=== PATIENT | male | born 1960 | race African-American/Black ===

== ENCOUNTER 2024-09-08 08:27 | Inpatient (IN) | payer MEDICAID ==
[2024-09-08] VITALS (7 sets, daily range): BP systolic 139–170; BP diastolic 88–100; PULSE 80–97; RESP 16–18; TEMP 36.3–36.8; O2SAT 98–100
[~2024-09-08] VITALS: Ht 182.9 cm; Wt 75.9 kg
[2024-09-08 09:28] LABS: BASOPHILS % 1.1 % (0.0-2.0); EOSINOPHILS % 2.4 % (0.0-5.0); HEMATOCRIT. 33.4 % (42.0-52.0); HEMOGLOBIN. 10.5 g/dL (14.0-18.0); LYMPHOCYTES % 10.7 % (20.0-50.0); MEAN PLATELET VOLUME 8.4 fl (7.4-10.4); MONOCYTES % 6.2 % (2.0-8.0); NEUTROPHILS % 79.6 % (40.0-76.0); PLATELET 294 x1000/uL (130-400); RED BLOOD CELL COUNT 4.35 mill/uL (4.7-6.1); RED CELL DISTRIBUTION WIDTH 18.1 % (11.6-14.6)
[2024-09-08 09:50] LABS: CREATININE 1.7 mg/dL (0.6-1.3); UREA NITROGEN BLOOD 22 mg/dL (9-23)
[2024-09-08 09:52] LABS: TROPONIN I HIGH SENSITIVITY 53 ng/L (3.0-53)
[2024-09-08] MEDS: FUROSEMIDE 100MG/10ML VIAL IVP ONE (11:25)
[2024-09-08] MEDS: CEFTRIAXONE 1GM/50ML 50 ML IV ONE (11:25)
[2024-09-08] MEDS: AZITHROMYCIN 500MG/250ML 250 ML IV STA (11:26)
[2024-09-08 11:40] LABS: TROPONIN I HIGH SENSITIVITY 73 ng/L (3.0-53)
[2024-09-08] MEDS ORDERED: ACETAMINOPHEN 325MG TABLET PO PRN (13:15)
[2024-09-08] MEDS ORDERED: ONDANSETRON HCL 4MG/2ML INJ IV PRN (13:15)
[2024-09-08] MEDS: AMLODIPINE 10MG TABLET PO SCH (13:39)
[2024-09-08] MEDS: ISOSORBIDE MONONITRATE 30MG TABLET SR 24HR PO SCH (14:42)
[2024-09-08] MEDS: ASPIRIN 81MG TABLET PO SCH (15:18)
[2024-09-08] MEDS: FUROSEMIDE 40MG/4ML VIAL IV SCH (17:33)
[2024-09-08] MEDS ORDERED: NALOXONE HCL 0.4MG/ML VIAL IV PRN (23:45)
[2024-09-09] VITALS (16 sets, daily range): BP systolic 138–164; BP diastolic 90–108; PULSE 73–93; RESP 10–19; TEMP 36.6–37; O2SAT 95–100
[2024-09-09] MEDS: HYDROCODONE/ACETAMINOPHEN 10/325MG TABLET PO PRN (00:15)
[2024-09-09] MEDS: ENOXAPARIN 40MG/0.4ML SYR SUBCUT SCH (08:46)
[2024-09-09] MEDS: IPRATROPIUM/ALBUTEROL 0.5-3(2.5)MG/3ML NEB HHN SCH (08:56)
[2024-09-09 09:02] LABS: BG BASE EXCESS 4.5 mmol/L (-2.0-3.0); BG CARBOXYHEMOGLOBIN 0.6 % (0.5-1.5); BG DEOXYHEMOGLOBIN 0.7 % (0.0-5.0); BG FLOW(L/min) 40.00 L/min; BG FRACTION INSPIRED OXYGEN 100; BG HCO3 ACT 29.1 mmol/L (21.0-28.0); BG METHEMOGLOBIN 0.0 % (0.5-1.5); BG OXYGEN SATURATION 99.3 % (94.0-98.0); BG OXYHEMOGLOBIN 98.7 % (94.0-98.0); BG PCO2 43.2 mmHg (35.0-48.0); BG PH 7.446 (7.350-7.450); BG PO2 188.2 mmHg (83.0-108.0); BG SAMPLE SITE RIGHT RADIAL; BG TOTAL HEMOGLOBIN 13.1 g/dL (13.5-17.5); BG VENT MODE HIGH FLOW
[2024-09-09 12:20] LABS: CREATININE 1.7 mg/dL (0.6-1.3); UREA NITROGEN BLOOD 24.0 mg/dL (9-23)
[2024-09-09] MEDS: POTASSIUM CHLORIDE 20MEQ TABLET SR PO SCH (12:53)
[2024-09-09] MEDS: HYDRALAZINE HCL 25MG TABLET PO SCH (21:47)
[2024-09-10] VITALS (12 sets, daily range): BP systolic 119–167; BP diastolic 76–102; PULSE 73–97; RESP 11–24; TEMP 36.6–36.8; O2SAT 93–97
[2024-09-10] MEDS: SPIRONOLACTONE 25MG TABLET PO SCH (14:32)
[2024-09-10] MEDS ORDERED: HYDR25TA78 MT ×2 (14:51→15:33)
[2024-09-10] MEDS ORDERED: ASPI-1497 MT ×2 (14:51→15:33)
[2024-09-10] MEDS ORDERED: AMLO10TA80 MT ×2 (14:51→15:33)
[2024-09-10] MEDS ORDERED: SPIR25TA6 MT ×2 (14:51→15:33)
[2024-09-10] MEDS ORDERED: ISOS10TA95 PO ×2 (14:51→15:33)
[2024-09-10] MEDS ORDERED: FURO-151 MT ×2 (14:51→15:33)
== END 2024-09-10 16:00 | disposition home or self-care (01) | DRG 280 ==
LOC: ER 08:27 → 5EST 10:44 → EDBEDREQTM 10:50 → EDBEDREQ 10:50 → EDBEDREQSVC 10:50 → ENRESERV 11:04
PROVIDERS: ADMIT Internal Medicine; ATTEND Internal Medicine
PROC: 5A0945A Assistance with Respiratory Ventilation, 24-96 Consecutive Hours, High Flow/Velocity Cannula (ICD-10-PCS; principal; 2024-09-08)
PROC: 5A0935A Assistance with Respiratory Ventilation, Less than 24 Consecutive Hours, High Flow/Velocity Cannula (ICD-10-PCS; 2024-09-09)
DX: I11.0 Hypertensive heart disease with heart failure (principal); I50.43 Acute on chronic combined systolic (congestive) and diastolic (congestive) heart failure; I21.4 Non-ST elevation (NSTEMI) myocardial infarction; J96.01 Acute respiratory failure with hypoxia; N17.0 Acute kidney failure with tubular necrosis; D64.9 Anemia, unspecified; I16.0 Hypertensive urgency; Z91.148 Patient's other noncompliance with medication regimen for other reason
CPT/HCPCS: 36415; 36600; 71045; 80048; 82375; 82805; 83036; 84484; 85025; 93005; 93970; 94070; 94640; 94760; 99285; A4606; J0456; J0696; J1650; J1940